=== PATIENT | male | born 2005 | race Caucasian/White ===

== ENCOUNTER 2024-12-27 21:32 | Observation (INO) | payer SELFPAY ==
--- OUTSIDE RECORDS SUMMARY | 2008-07-23 19:00 | XMS_ITS | Continuity of Care Document ---
Author Organization [facility] Address [id number][place] [address] Phone Care Team Providers Care Stonecutter Hand Name Role Phone Unavailable Unavailable Unavailable Advance Directives Directive Yes / No Effective Date File Name No Information Encounters Encounter Description Practice Location Reason(s) For Visit Diagnoses Date Provider Providers Copied on Encounter [facility], [id number] [place], [place], [id number], [place] tel:[phone] Family Medicine F1 Other emotional disturbances of childhood or adolescence 0200 9 No Information [facility], [id number], [id number], [place] tel:[phone] Family Medicine F1 Attention deficit disorder of childhood with hyperactivity 3200 9 No Information Family History Family Member Type Diagnosis Age At Onset No Information Payers Payer name Insurance type Covered libertarian ID Authoriza tion(s) No Information Social History [...]
[2024-12-27 21:42] VITALS: BP 150/90; PULSE 130; RESP 18; TEMP 38.1; O2SAT 99; BMI 27.6
--- NOTE | 2024-12-27 21:47 | XRR_ITS ---
PROCEDURE INFORMATION: Exam: XR Chest Exam date and time: 12/27/2024 9:51 PM Age: 19 years old Clinical indication: Dyspnea TECHNIQUE: Imaging protocol: Radiologic exam of the chest. Views: 1 view. COMPARISON: No relevant prior studies available. FINDINGS: Lungs: Unremarkable. No consolidation. Pleural spaces: Unremarkable. No pleural effusion. No pneumothorax. Heart/Mediastinum: Unremarkable. No cardiomegaly. Bones/joints: Unremarkable. XR/XR chest 1V portable [id number] IMPRESSION: No acute findings.
[2024-12-27] MEDS: sodium chloride 0.9% 2,925.66 ML 2925.66 ML IV (22:00)
--- NOTE | 2024-12-27 22:02 | ED_ITS ---
HPI - SOB/Dyspnea 2 General: Chief Complaint: Shortness of Breath/Dyspnea Stated Complaint: allergic reaction. SOB skin blisters Time Seen by Provider: 12/27/24 21:46 History of Present Illness: HPI Narrative: Chief complaint is redness of the skin and vomiting. Patient states that on he was cleaning out a tank with paint thinner being sprayed. He states that he has done this many times in the past. He states later that evening he felt like he had the taste of it in his mouth like he had swallowed some of it and he felt sick to his stomach and he vomited. He states after vomiting he did not taste anymore any felt like he was doing better but yesterday morning he woke up and his skin was red and burning all over. He states he did take a Benadryl at home and he states some of the swelling and erythema in his thigh area seems better. No headache. Asked him about tick bites and he states he does get occasional tick bites but none that he was aware of that were new. No other bites that he is aware of. He states he does not feel really short of breath although he states sometimes when he is walking he will feel just slight difficulty catching his air. No history of asthma or COPD. No medical problems. No immunosuppression. No IV drug use. No regular alcohol use. No chest pain. No cough. He states he had a slight scratchy throat yesterday but none today. No further vomiting. No abdominal pain. No diarrhea. No black or bloody stools or emesis. No dysuria. No testicular pain or swelling. No swelling of his throat or trouble swallowing. No itching. He did not take niacin or any new medications or any other new substances that he is aware of. Physical Exam 2 Narrative: EXAM NARRATIVE: Patient is alert talkative. His skin is erythematous and blanches with some delayed cap refill. Erythema is primarily on his trunk and face. Small amount on extremities. He is tachycardic on auscultation. Lung sounds are clear. No increased work of breathing. No accessory muscle use or retractions he is speaking in full sentences. Neck is supple. Normal conjunctivo-. He has moist mucous membranes. No pharyngeal erythema or exudates. No cervical lymphadenopathy. No stridor. No swelling of his face or arms or extremities that I can appreciate. He is alert and talkative and appropriate affect. He is oriented x 4. He is moving his arms and legs freely and no evident motor deficit. He has strong intact peripheral pulses. He moves his extremities freely. No CVA tenderness or tenderness over his back. Course 2 Vital Signs: Vital signs: Vital Signs Temperature 100.5 F H 12/27/24 21:42 Pulse Rate 100 12/27/24 22:50 Respiratory Rate 16 12/27/24 22:50 Blood Pressure 134/93 12/27/24 22:50 Pulse Oximetry 100 12/27/24 22:50 Oxygen Delivery Me thod Room Air 12/27/24 22:50 MDM - SOB/Dyspnea Medical Decision Making Patient presents with a erythematous rash over his face and torso. He denies any sun exposure or possible sunburn. He reports burning pink thinner and working in a tank or cleaning it with the spraying paint thinner the day before the symptoms started following by some vomiting that evening but no vomiting since then and no abdominal pain. He denies any significant shortness of breath to me. He has markedly tachycardic. Sepsis certainly considered in the differential. I ordered 30 cc/kg normal saline IV fluid bolus and Tylenol 650 mg p.o. and Rocephin 2 g IV and thousand 500 mg of vancomycin IV. Consideration for anaphylaxis or allergic reaction however he has a fever and his rash is not pruritic and he denies swelling in his throat or any other area of swelling other than he states his thighs were little swollen and he states that his eyelids and face were little swollen and very bright red earlier although he states that is calm down. He did take some Benadryl at home. He is very tachycardic. Will initiate IV fluid bolus and then reassess and consider epinephrine. Will proceed with Pepcid 20 mg IV. Toxidrome, allergic reaction, sepsis, broad differential. He denies taking niacin. History also obtained from his who is present. CBC blood cultures lactic CMP chest x-ray EKG also ordered. Patient did not hear of clear improvement from the epinephrine. He states he is starting to feel much better though he states the swelling in his face and legs seems to be going down. Patient's heart rate is markedly improved. Lactic was not elevated. White count was elevated. I consulted with poison control who feels that patient's presentation unrelated to the paint thinner that he sprayed. The patient has the ration areas that were not exposed to the paint thinner. Patient does not recall that he did take a reflux pill from his uncle the night before the rash started because of his symptoms after spraying the paint thinner and he does not know what medication it was. Chemical burn is unlikely with areas affected including the armpits and other areas that would not have been exposed. It is possible this could be related but he does not know what it was he took. Toxic shock or sepsis or other infectious process, allergic reaction, contact dermatitis, very broad differential. I give the patient doxycycline in addition with his history of the tick bites. I have consulted with who is seeing pt in ED to admit. Lab Data 12/27/24 22:01 12/27/24 22:01 Labs/Radiology: Radiology Impressions Chest X-Ray 12/27/24 21:47 IMPRESSION: No acute findings. Laboratory Results WBC 14.75 10^3/uL (4.5-13.0) H 12/27/24 22:01 RBC 6.09 10^6/uL (3.85-5.65) H 12/27/24 22:01 Hgb 19.40 g/dL (13.2-15.6) H 12/27/24 22:01 Hct 52.8 % (37-53) 12/27/24 22: MCV 86.7 fl (82-101) 12/27/24 22:01 MCH 31.9 pg (27-33) 12/27/24 22: MCHC 36.7 g/dL (30-55) 12/27/24 22: RDW 11.7 % (12.1-15.1) L 12/27/24 22:01 Plt Count 166 10^3/cmm (157-399) 12/27/24 22:01 MPV 9.8 fL (7.4-10.4) 12/27/24 22:01 Neut % (Auto) 85.7 % 12/27/24 22:01 Lymph % (Auto) 8.7 % 12/27/24 22: [place] % (Auto) 3.6 % 12/27/24 22: Eos % (Auto) 1.4 % 12/27/24 22:01 Baso % (Auto) 0.1 % 12/27/24 22:01 Neut # (Auto) 12.64 10^3/uL (1.8-8.0) H 12/27/24 22:01 Lymph # (Auto) 1.3 10^3/uL (1.5-6.5) L 12/27/24 22:01 [place] # (Auto) 0.5 10^3/uL (0.2-0.9) 12/27/24 22:01 Eos # (Auto) 0.2 10^3/uL (0.0-0.8) 12/27/24 22: Baso # (Auto) 0.0 10^3/uL (0.0-0.1) 12/27/24 22: Nucleated RBC % (auto) 0 % 12/27/24 22: Nucleated RBCs # 0.0 /100WBC 12/27/24 22:01 Sodium 134 mmol/L (136-145) L 12/27/24 22: Potassium 4.2 mmol/L (3.5-5.1) 12/27/24 22: Chloride 98 mmol/L (98-107) 12/27/24 22: Carbon Dioxide 23 mmol/L (22-29) 12/27/24 22: Anion Gap 17.2 (5-19) 12/27/24 22: BUN 11 mg/dL (6-20) 12/27/24 22: Creatinine 1.1 mg/dL (0.7-1.2) 12/27/24 22: GFR Calculation 85.3 mL/min (90-130) L 12/27/24 22: Glucose 102 mg/dL (65-115) 12/27/24 22: Calculated Osmolality 278 mOsm/kg (285-295) L 12/27/24 22: Lactic Acid 1.3 mmol/L (0.5-2.2) 12/27/24 22: Calcium 9.7 mg/dL (8.5-10.5) 12/27/24 22: Total Bilirubin 1.1 mg/dL (0.15-1.2) 12/27/24 22: AST 21 U/L (0-40) 12/27/24 22: ALT 17 U/L (0-41) 12/27/24 22:01 Alkaline Phosphatase 71 U/L (40-130) 12/27/24 22:01 Total Protein 7.5 g/dL (6.6-8.7) 12/27/24 22:01 Albumin 4.6 g/dL (3.5-5.2) 12/27/24 22:01 Globulin 2.9 g/dL (1.3-4.6) 12/27/24 22:01 Influenza A (PCR) Negative (Negative) 12/27/24 22:18 Influenza Type B (PCR) Negative (Negative) 12/27/24 22:18 RSV (PCR) Negative (Negative) 12/27/24 22:18 SARS-CoV-2 (PCR) Negative (Negative) 12/27/24 22:18 Group A Strep Rapid Negative (Negative) 12/27/24 22:18 XR interpretation done by ED provider, pending radiology final review Discharge Plan Discharge Patient Disposition: Placed in Observation Clinical Impression: Fever, Sinus tachycardia Coding Level of Care Code ED Java [employer] Developer for Jeffery Lambert
[2024-12-27 22:09] LABS: Hematocrit 52.8 % (37-53); Hemoglobin 19.40 g/dL (13.2-15.6); Mean Corpuscular HGB Conc 36.7 g/dL (30-55); Mean Corpuscular Hemoglobin 31.9 pg (27-33); Mean Corpuscular Volume 86.7 fl (82-101); Nucleated Red Blood Cells % 0 %; Platelet Count 166 10^3/cmm (157-399); Red Blood Count 6.09 10^6/uL (3.85-5.65); White Blood Count 14.75 10^3/uL (4.5-13.0)
[2024-12-27] MEDS: cefTRIAXone 2,000 mg SDV 2000 MG IVP (22:10)
--- NOTE | 2024-12-27 22:13 | ECG_ITS ---
[facility] Test Date: 2024-12-27 Pat Name: Sukhdev Tolentino Department: Room: 276 Gender: Male Garnetter: : 2005 Requested By: Marlon Simpson Order Number: [id number] Reading MD: Measurements Intervals [place] Rate: 100 P: 72 WI: 144 QRS: 55 QRSD: 91 T: 36 QT: 311 QTc: 401 Interpretive Statements SINUS TACHYCARDIA ABNORMAL RHYTHM ECG No previous ECG available for comparison [email or web address]
[2024-12-27 22:26] LABS: Lactic Sepsis W/Reflex 1.3 mmol/L (0.5-2.2)
[2024-12-27 22:27] LABS: Alanine Aminotransferase 17 U/L (0-41); Albumin Level 4.6 g/dL (3.5-5.2); Alkaline Phosphatase 71 U/L (40-130); Anion Gap 17.2 (5-19); Aspartate Amino Transferase 21 U/L (0-40); Blood Urea Nitrogen 11 mg/dL (6-20); Calcium 9.7 mg/dL (8.5-10.5); Carbon Dioxide 23 mmol/L (22-29); Chloride 98 mmol/L (98-107); Creatinine Clr Calc Pharmacy 133.8315; Globulin 2.9 g/dL (1.3-4.6); Glucose 102 mg/dL (65-115); Osmolality Calculated 278 mOsm/kg (285-295); Potassium 4.2 mmol/L (3.5-5.1); Sodium 134 mmol/L (136-145); Total Protein 7.5 g/dL (6.6-8.7)
[2024-12-27 22:28] VITALS: BP 138/81; PULSE 86; RESP 16; O2SAT 100
[2024-12-27 22:41] LABS: Rapid Strep A Test Negative (Negative)
[2024-12-27 22:44] VITALS: BP 138/81; PULSE 93; RESP 16; O2SAT 98
[2024-12-27 22:50] VITALS: BP 134/93; PULSE 100; RESP 16; O2SAT 100
[2024-12-27 23:11] LABS: Respiratory Syncytial Virus Ce NEGATIVE (Negative); SARS-CoV-2 PCR NEGATIVE (Negative)
[2024-12-27] MEDS: diphenhydrAMINE 50 mg/mL SDV 1mL 25 MG IVP (23:24)
[2024-12-27] MEDS: doxycycline 100 MG in sodium chloride 0.9% (plus) 100 ML IV (23:24)
[2024-12-27 23:36] VITALS: BP 117/52; PULSE 108; RESP 16; O2SAT 100
[2024-12-27 23:51] LABS: ABG PCO2 31.5 mmHg (35-45); ABG PH Result 7.39 (7.35-7.45); Alveolar-Arterial Oxygen Gradi 1.8 mmHg (5-10); Arterial Blood Gas Hematocrit 47.6 % (42-52); Blood Gas Allen Test Pos; Blood Gas Sample Site Radial, right; Blood Gas Sample Type Arterial; Carboxyhemoglobin 2.7 %THgb (0.4-20.1); Glucose Level-ABG 125.0 mg/dL (70-115); HCO3 ABG 18.9 mmol/L (22-26); Ionized Calcium Level - ABG 1.1 mmol/L (1.1-1.4); Methemoglobin 1.2 % (0.4-1.5); Oxygen Saturation ABG 98.5; PO2 ABG 95.2 mmHg (80.0-100.0); Potassium Level - ABG 3.8 mmol/L (3.5-5.0); Sodium Level - ABG 136.0 mmol/L (131-143)
--- NOTE | 2024-12-28 00:06 | P.HP_ITS ---
Providers/Chief Complaint 2 Admitting Physician: Patient seen before midnight Chief Complaint: allergic reaction. SOB skin blisters History of Present Illness Sukhdev Tolentino is a 19 year old male with no significant medical history who had presented to the emergency room because of what looks like allergic reaction. Patient was at work and had to use a pain thinner to [employer] that they were cleaning to make it brand-new. With the sprain patient smelled and inhaled the fumes because of being in the area. Instantly patient started having nausea and threw up and actually had the sensation of tasting the fumes in his mouth. This was all happening yesterday being December 26 around about 9 AM. In the evening patient was still feeling a little nauseous the ankle gave him some antiacid according to him and he took it. Today patient started experiencing miliary rashes all over the body. Patient feels warm and quite erythematous. The face had perioral cyanosis all over the place. Feel with miliary rash. Patient blanches when you touch the skin and initially it takes more than 3 seconds to return back. The emergency room physician further interrogated the patient and the patient told him that he had had a couple of teeth but and upon when I was there to evaluate the patient upon being consulted by the emergency room attending, patient tells me that even pulled a tick in between the toes and he did not know how long it has been there. I feel these are 2 different processes going on. Strep culture was done and it was negative. Blood culture x 2 done COVID flu RSV done and negative. Patient received some Benadryl Pepcid from the emergency room and also was given vancomycin and doxycycline and ceftriaxone. Per the report patient erythematosus face and chest and trunk had improved but still with miliary rash. Patient did have a temperature of 100.5. It was be also noted that patient heart rate at presentation was 140. Patient received 3 L of IV fluid normal saline in the emergency room. He was beginning to feel better before I arrive to evaluate patient. Patient also was given an amp of epi. ED felt that strep sepsis cannot be ruled out patient white count was 14,000 do all of the inflammatory indices were negative. Patient felt warm and cold at the same time. I have seen and evaluated patient at this time chest x-ray unremarkable urinalysis unremarkable lactate unremarkable at 1.3. I continued patient on doxycycline empirically to cover for tickborne illness and also sent for tick panel. However the most #1 diagnosis is systemic inflammatory reaction secondary to accidental inhalation of paint thinner. Possible take borne illness is unrelated. I continue with doxycycline as a single agent antibiotics for empiric antibiotics for tickborne illness, I added steroid to aggressively calm the inflammation down for associated allergic form of illness. I see this as a 23-hour observation stay. Review of Systems 2 Narrative: System review upon 10 organ review were significant for miliary rashes with blanching and almost resolving with the care given at the emergency room with Benadryl doxycycline PPIs. System review were essentially unremarkable except for integumentary with miliary rash and systemic symptoms of febrile illness low-grade this is an observation stay Vitals/I&O/Wt Last Vital Signs Temp 100.5 F H 12/27/24 21:42 Pulse 108 H 12/27/24 23:36 Resp 16 12/27/24 23:36 BP 117/52 12/27/24 23:36 Pulse Ox 100 12/27/24 23:36 O2 Del Method Room Air 12/27/24 23:36 Weight last 48 hrs Weight 97.522 kg Physical Exam 2 Narrative: Generally patient is relaxed flushed with miliary rashes all over the body including the face. Has perioral cyanosis. Initial heart rate of tachycardia at 140 had come down to less than 110 HEENT normocephalic atraumatic neck neck is supple cardiovascular heart rate is regular lungs are pretty much clear abdomen soft nontender nondistended unremarkable extremities are intact with a lot of tick bites to the lower extremities Neurology no focality patient is alert awake oriented x 3. Integumentary is with diffuse miliary rash erythematous skin and blanching of the skin upon any pressure. Cap refill is good had improved dramatically from presentation. Data 12/27/24 22:01 12/27/24 22:01 Micro: Microbiology 12/27/24 22:19 Blood Culture - Preliminary Blood SPECIMEN COLLECTED 12/27/24 22:01 Blood Culture - Preliminary Blood SPECIMEN COLLECTED A&P Assessment and plan (1) Toxic effect of paint thinner: - Patient has all 5 signs of patient Milagro poisoning *Nausea and vomiting and abdominal pain all cramping, diarrhea *Difficulty breathing Could have change in mental status confusion drowsiness or agitation but this patient does not have these *Treated with IV fluid patient had gotten 3 L in the emergency room. The allergic-like symptom display we have treated with Benadryl, steroid, PPI, and an initial EPi of 0.3 mg IM given (2) Sinus tachycardia: Toxic effects of paint thinner This is tachycardia arrhythmia inflammatory induced by toxic paint thinner Responded to IV hydration, steroid therapy, an amp of epinephrine injection, PPI, (3) Blistered skin: These's skin irruption 2 to toxic paint thinner effect Wash off, supportive care with IV fluid, anti-inflammatory such as steroid and other supportive care with PPI Benadryl (4) Fever: Fever is systemic reaction to the toxic effects of paint fumes Fever leads to tachycardia likely in this patient Anti-inflammatory is the mainstay can follow through with steroid therapy, Benadryl, IV hydration, (5) At high risk for tick borne illness: Patient with tick bite and had taken off some of the skin. - Tick panel sent and doxycycline therapy initiated (6) Rash and nonspecific skin eruption: Toxic effects of paint fumes continue treatment with - IV hydration, PPI, anti-inflammatory Benadryl steroids Plan GI and DVT prophylaxis in place PDMP PDMP Reviewed: Last Reviewed 12/28/24 01:21 by Citlaly Arroyo MD Attestations 2 Medical Necessity Statement*: Toxic effect of paint thinner fumes patient is improving and this will be a 23- hour observation stay Coding Level of Care Code 59760 Diagnoses Toxic effect of paint thinner T52.8X1A Sinus tachycardia R00.0 Blistered skin T14.8XXA Fever R50.9 At high risk for tick borne illness Z91.89 Rash and nonspecific skin eruption R21 Time Spent (min) 60
[2024-12-28 00:14] LABS: Glucose Urine UA Negative (Normal); Nitrate Urine Negative (Negative); Specific Gravity, Urine 1.023 (1.005-1.030)
[2024-12-28 00:21] LABS: PCP Screen Urine Negative (Negative)
[2024-12-28 00:25] VITALS: BP 106/65; PULSE 88; RESP 19; TEMP 37.7; O2SAT 98
[2024-12-28] MEDS: pantoprazole 40 mg SDV IVP (01:17)
[2024-12-28] MEDS: methylPREDNISolone sod succ 40 mg/mL INJ IVP (01:18)
[2024-12-28] MEDS: diphenhydrAMINE 50 mg/mL SDV 1mL IVP (01:22)
[2024-12-28 01:28] VITALS: BMI 28.3
[2024-12-28 04:00] VITALS: BP 120/67; PULSE 94; RESP 17; TEMP 37.3; O2SAT 98
[2024-12-28 06:41] VITALS: PULSE 82
[2024-12-28 08:25] VITALS: BP 115/63; PULSE 74; RESP 16; TEMP 36.8; O2SAT 98
--- NOTE | 2024-12-28 10:59 | PM.DCS ---
Discharge Providers Date of Admission: 12/28/24 00:16 Date of Discharge: December 28, 2024 Attending Provider at Admission: Ctilaly Arroyo MD Attending Provider at Discharge: Armando eHster MD Diagnoses at Discharge Discharge Diagnosis (1) Toxic effect of paint thinner: Status: Acute (2) Sinus tachycardia: Status: Acute (3) Blistered skin: Status: Acute (4) Fever: Status: Acute (5) At high risk for tick borne illness: Status: Acute (6) Rash and nonspecific skin eruption: Status: Acute Reason for Visit Reason for Visit: allergic reaction. SOB skin blisters Hospital Course Hospital Course This is a 19-year-old male who presents [facility] due to rash, vomiting, nausea Patient was admitted to [facility] for allergic reaction, chemical exposure, heat exposure -Received IV steroids, IV fluids - Rash has significantly responded to steroids - No recurrent pruritus - No facial swelling, no tongue swelling, no wheezing - Will be discharged on prednisone burst, - Advised to hydrate well - Monitor rash follow-up with primary care provider For concern for tickborne illness, discharged on doxycycline Tachycardia has resolved during his hospitalization Afebrile on discharge Patient did have leukocytosis, recommended repeat CBC in the morning however he has declined Patient does have erythrocytosis, likely hemoconcentration, from dehydration, however patient declines repeat CBC to ensure erythrocytosis has resolved Urine toxicology screen positive for marijuana advised against marijuana use Advised patient that as he is on doxycycline, to wear sunscreen avoid the sun, hydrate well Heat exposure advised him to stay out of sun, keep cool, hydrate at least 3 L of fluid a day Due to concerns for allergic reaction he was given an EpiPen on discharge, if he were to have any anaphylactic reaction please use EpiPen and call [phone] Physical Exam Const: COMMON NORMALS: no acute distress and patient oriented x3 Resp: COMMON NORMALS: normal respiratory effort, No retractions, No use of accessory muscles and clear to auscultation bilaterally AUSCULTATION: clear to auscultation bilaterally Cardio: COMMON NORMALS: regular rate, regular rhythm, S1 normal heart sound present and S2 normal heart sound present RATE: regular rate RHYTHM: regular rhythm HEART SOUNDS: S1 normal heart sound present and S2 normal heart sound present GI: COMMON NORMALS: Normal to inspection, nondistended, normoactive bowel sounds present and non-tender Extremity: COMMON NORMALS: no pedal edema Neuro: COMMON NORMALS: patient oriented x3, CN's II-XII intact bilaterally and moves all extremities Psych: COMMON NORMALS: mental status grossly normal Discharge Data Studies Completed and Pending Completed Studies During Hospitalization Category Date Time Status XR chest 1V portable [id number] Stat Exams 12/27/24 21:47 Completed Pending at discharge Category Date Time Status Blood Culture Stat Lab 12/27/24 22:19 Results Complete Blood Count w/Auto AM LABS Lab 12/28/24 04:00 Ordered Comprehensive Metabolic Panel AM LABS Lab 12/28/24 04:00 Ordered Erythrocyte Sedimentation Rate Routine Lab 12/28/24 09:07 Ordered Magnesium AM LABS Lab 12/28/24 04:00 Ordered Phosphorus AM LABS Lab 12/28/24 04:00 Ordered Streptococcus Culture Group A Stat Lab 12/27/24 22:18 Received Tick Panel Urgent Lab 12/28/24 00:25 Ordered Radiology Impressions Chest X-Ray 12/27/24 21:47 IMPRESSION: No acute findings. Laboratory Results WBC 14.75 10^3/uL (4.5-13.0) H 12/27/24 22:01 RBC 6.09 10^6/uL (3.85-5.65) H 12/27/24 22:01 Hgb 19.40 g/dL (13.2-15.6) H 12/27/24 22:01 Hct 52.8 % (37-53) 12/27/24 22:01 MCV 86.7 fl (82-101) 12/27/24 22:01 MCH 31.9 pg (27-33) 12/27/24 22:01 MCHC 36.7 g/dL (30-55) 12/27/24 22:01 RDW 11.7 % (12.1-15.1) L 12/27/24 22:01 Plt Count 166 10^3/cmm (157-399) 12/27/24 22:01 MPV 9.8 fL (7.4-10.4) 12/27/24 22:01 Neut % (Auto) 85.7 % 12/27/24 22:01 Lymph % (Auto) 8.7 % 12/27/24 22:01 [place] % (Auto) 3.6 % 12/27/24 22:01 Eos % (Auto) 1.4 % 12/27/24 22:01 Baso % (Auto) 0.1 % 12/27/24 22:01 Neut # (Auto) 12.64 10^3/uL (1.8-8.0) H 12/27/24 22:01 Lymph # (Auto) 1.3 10^3/uL (1.5-6.5) L 12/27/24 22:01 [place] # (Auto) 0.5 10^3/uL (0.2-0.9) 12/27/24 22:01 Eos # (Auto) 0.2 10^3/uL (0.0-0.8) 12/27/24 22:01 Baso # (Auto) 0.0 10^3/uL (0.0-0.1) 12/27/24 22:01 Nucleated RBC % (auto) 0 % 12/27/24 22:01 Nucleated RBCs # 0.0 /100WBC 12/27/24 22:01 Specimen Type Arterial 12/27/24 23:42 Sample Site Radial, right 12/27/24 23:42 ABG pH 7.39 (7.35-7.45) 12/27/24 23:42 ABG pCO2 31.5 mmHg (35-45) L 12/27/24 23:42 ABG pO2 95.2 mmHg (80.0-100.0) 12/27/24 23:42 ABG HCO3 18.9 mmol/L (22-26) L 12/27/24 23:42 ABG O2 Saturation 98.5 12/27/24 23:42 ABG Base Excess -4.9 mmol/L (-2.0-2.0) L 12/27/24 23:42 Zachary Test Pos 12/27/24 23:42 A-a O2 Gradient 1.8 mmHg (5-10) L 12/27/24 23:42 Hematocrit 47.6 % (42-52) 12/27/24 23:42 Hgb O2 Saturation 94.7 % (95-100) L 12/27/24 23:42 Carboxyhemoglobin 2.7 %THgb (0.4-20.1) 12/27/24 23:42 Methemoglobin 1.2 % (0.4-1.5) 12/27/24 23:42 Total Hemoglobin 15.5 g/dL (14-18) 12/27/24 23:42 Sodium 136.0 mmol/L (131-143) 12/27/24 23:42 Potassium 3.8 mmol/L (3.5-5.0) 12/27/24 23:42 Glucose 125.0 mg/dL (70-115) H 12/27/24 23:42 Ionized Calcium 1.1 mmol/L (1.1-1.4) 12/27/24 23:42 O2 Delivery Device Room air 12/27/24 23:42 Phlebotomy Technologist ID [email or web address] 12/27/24 23:42 Sodium 134 mmol/L (136-145) L 12/27/24 22:01 Sodium Cancelled 12/27/24 22:01 Potassium 4.2 mmol/L (3.5-5.1) 12/27/24 22:01 Potassium Cancelled 12/27/24 22:01 Chloride 98 mmol/L (98-107) 12/27/24 22:01 Chloride Cancelled 12/27/24 22:01 Carbon Dioxide 23 mmol/L (22-29) 12/27/24 22:01 Carbon Dioxide Cancelled 12/27/24 22:01 Anion Gap 17.2 (5-19) 12/27/24 22:01 Anion Gap Cancelled 12/27/24 22:01 BUN 11 mg/dL (6-20) 12/27/24 22:01 BUN Cancelled 12/27/24 22:01 Creatinine 1.1 mg/dL (0.7-1.2) 12/27/24 22:01 Creatinine Cancelled 12/27/24 22:01 GFR Calculation 85.3 mL/min (90-130) L 12/27/24 22:01 GFR Calculation Cancelled 12/27/24 22:01 Glucose 102 mg/dL (65-115) 12/27/24 22:01 Glucose Cancelled 12/27/24 22:01 Calculated Osmolality 278 mOsm/kg (285-295) L 12/27/24 22:01 Calculated Osmolality Cancelled 12/27/24 22:01 Lactic Acid 1.3 mmol/L (0.5-2.2) 12/27/24 22:01 Calcium 9.7 mg/dL (8.5-10.5) 12/27/24 22:01 Calcium Cancelled 12/27/24 22:01 Total Bilirubin 1.1 mg/dL (0.15-1.2) 12/27/24 22:01 Total Bilirubin Cancelled 12/27/24 22:01 AST 21 U/L (0-40) 12/27/24 22:01 AST Cancelled 12/27/24 22:01 ALT 17 U/L (0-41) 12/27/24 22:01 ALT Cancelled 12/27/24 22:01 Alkaline Phosphatase 71 U/L (40-130) 12/27/24 22:01 Alkaline Phosphatase Cancelled 12/27/24 22:01 C-Reactive Protein 33.6 mg/L (0.0-4.9) H 12/27/24 22:01 Total Protein 7.5 g/dL (6.6-8.7) 12/27/24 22:01 Total Protein Cancelled 12/27/24 22:01 Albumin 4.6 g/dL (3.5-5.2) 12/27/24 22:01 Albumin Cancelled 12/27/24 22:01 Globulin 2.9 g/dL (1.3-4.6) 12/27/24 22:01 Globulin Cancelled 12/27/24 22:01 Urine Color [place] (Yellow) A 12/28/24 00:09 Urine Appearance Clear (CLEAR) 12/28/24 00:09 Urine pH 5.5 (5-7) 12/28/24 00:09 Ur Specific [place] 1.023 (1.005-1.030) 12/28/24 00:09 Urine Protein Trace (Negative) A 12/28/24 00:09 Urine Glucose (UA) Negative (Normal) 12/28/24 00:09 Urine Ketones Negative (Negative) 12/28/24 00:09 Urine Blood Negative (Negative) 12/28/24 00:09 Urine Nitrate Negative (Negative) 12/28/24 00:09 Urine Bilirubin Negative (Negative) 12/28/24 00:09 Urine Urobilinogen 1.0 mg/dL (Negative) 12/28/24 00:09 Ur Leukocyte Esterase Negative (Negative) 12/28/24 00:09 Urine RBC 0-2 /hpf (0-2) 12/28/24 00:09 Urine WBC 0-5 /hpf (0-5) 12/28/24 00:09 Ur Squamous Epith Cells 0-5 /hpf (0-5) 12/28/24 00:09 Amorphous Sediment Not Reportable 12/28/24 00:09 Urine Bacteria None seen /hpf (NONE) 12/28/24 00:09 Hyaline Casts 0.81 /lpf 12/28/24 00:09 Urine Opiates Screen Negative ng/mL (Negative) 12/28/24 00:09 Ur Barbiturates Screen Negative ng/mL (Negative) 12/28/24 00:09 Ur Phencyclidine Scrn Negative ng/mL (Negative) 12/28/24 00:09 Ur Amphetamines Screen Negative ng/mL (Negative) 12/28/24 00:09 U Benzodiazepines Scrn Negative ng/mL (Negative) 12/28/24 00:09 Urine Cocaine Screen Negative ng/mL (Negative) 12/28/24 00:09 U Marijuana (THC) Screen Positive ng/mL (Negative) H 12/28/24 00:09 Influenza A (PCR) Negative (Negative) 12/27/24 22:18 Influenza Type B (PCR) Negative (Negative) 12/27/24 22:18 RSV (PCR) Negative (Negative) 12/27/24 22:18 SARS-CoV-2 (PCR) Negative (Negative) 12/27/24 22:18 Group A Strep Rapid Negative (Negative) 12/27/24 22:18 Vitals Last Vital Signs Temp 98.2 F 12/28/24 08:25 Pulse 74 12/28/24 08:25 Resp 16 12/28/24 08:25 BP 115/63 12/28/24 08:25 Pulse Ox 98 12/28/24 08:25 O2 Del Method Room Air 12/28/24 08:25 Discharge Plan Discharge Patient Disposition: Home Condition: Stable Prescriptions: New prednisone 20 mg tablet 20 mg PO BID 3 Days Qty: 6 0RF doxycycline hyclate 100 mg tablet 100 mg PO BID 5 Days Qty: 10 0RF Discharge Orders: Discharge Order (Routine); Ordered 12/28/24 Ordered By: Armando Hester Discharge Diet: Cardiac Discharge Activity: Resume usual activity Patient Instructions: Allergic Reaction, Doxycycline (By mouth), Prednisone (By mouth), Tick Bite (GEN), Opioid Safety, Patient Portal & Anthony Instructions Discharge Attestations Time Spent in Discharge Care*: greater than 30 min Quality Metrics Clinical Quality Measures [ No reported AMI, CVA or VTE this stay] Coding Level of Care Code 62922 Total time (in minutes) for Discharge: 45 Diagnoses Toxic effect of paint thinner T52.8X1A Sinus tachycardia R00.0 Blistered skin T14.8XXA Fever R50.9 At high risk for tick borne illness Z91.89 Rash and nonspecific skin eruption R21
[2024-12-28 11:08] VITALS: BP 116/63; PULSE 74; RESP 16; TEMP 36.8; O2SAT 98
--- NOTE | 2024-12-28 11:08 | PC.NURSE ---
Patient discharged at this time. Patient verbalized understanding of discharge instructions and to follow up with a primary care doctor as soon as he can get established with one. Reviewed medications with patient who verbally understood. Patint ambulated from the floor with a steady gait.
== END 2024-12-28 11:08 | disposition home or self-care (01) ==
LOC: ER 23:31 → MEDSURG 12-28 00:16
PROVIDERS: Admitting Provider Internal Medicine; Emergency Provider Emergency Medicine; Visit Provider Family Medicine
DX: T52.8X1A Toxic effect of other organic solvents, accidental (unintentional), initial encounter (principal); T14.8XXA Other injury of unspecified body region, initial encounter; R00.0 Tachycardia, unspecified; R50.9 Fever, unspecified; Z91.89 Other specified personal risk factors, not elsewhere classified; R21 Rash and other nonspecific skin eruption; D72.829 Elevated white blood cell count, unspecified; D75.1 Secondary polycythemia; F12.90 Cannabis use, unspecified, uncomplicated; Z79.899 Other long term (current) drug therapy
CPT/HCPCS: 36415; 36600; 71045; 80051; 80053; 80306; 81001; 82330; 82805; 83605; 85025; 87040; 87081; 87637; 87880; 93005; 93010; 96365; 96367; 96372; 96375; 96376; 99285; G0378; J0171; J0696; J1200; J1885; J2470; J2919; J3370; J3490; J7030; J9999

== ENCOUNTER 2024-12-30 23:40 | Emergency (ER) | payer SELFPAY ==
--- OUTSIDE RECORDS SUMMARY | 2008-07-23 19:00 | XMS_ITS | Continuity of Care Document ---
Author Organization [facility] Address [address] [id number] [address] Phone Care Team Providers Care Centrifugal Spinner Name Role Phone Unavailable Unavailable Unavailable Advance Directives Directive Yes / No Effective Date File Name No Information Encounters Encounter Description Practice Location Reason(s) For Visit Diagnoses Date Provider Providers Copied on Encounter [facility], [id number] [place], [place], [id number], [place] tel:[phone] Family Medicine F1 Other emotional disturbances of childhood or adolescence 0200 9 No Information [facility], [id number], [id number], [place] tel:[phone] Family Medicine F1 Attention deficit disorder of childhood with hyperactivity 3200 9 No Information Family History Family Member Type Diagnosis Age At Onset No Information Payers Payer name Insurance type Covered republican ID Authoriza tion(s) No Information Social History Type Description Quantity Date Captured Comments Sex Male Smoking Status No Information Chief Complaint And Reason For Visit No Information Reason For Referral Reason For Referral No Information History Of Present Illness Encounter Date Complaint History Of Prese nt Illness No Information Functional Status Date Functional Assessmen t No Information Instructions Date Instruction Additional Infor mation No Information Assessments Type Assessment Date No Information Patient Care Teams Name Effective Dates (start - stop) Status Members No Information
[2024-12-30 23:58] VITALS: BP 137/73; PULSE 79; RESP 17; TEMP 37.1; O2SAT 99; BMI 27.8
--- NOTE | 2024-12-31 01:46 | W.ED.SKABFB ---
HPI - Skin/Abscess/Foreign Bdy General: Chief complaint: Skin/Abscess/Foreign Body Stated complaint: L leg swollen and purple possible spider bite Time Seen by Provider: 12/31/24 01:26 History of Present Illness: Patient comes in with concerns for worsening spider bite/infection. States he was seen here 4 days ago and diagnosed with allergic reaction to a possible spider bite and possible cellulitis. He was started on steroids and doxycycline. States he did not crab picker the steroids but he has been taking the doxycycline. States he is worried that the redness is worse. On physical exam he has a 1 x 1 cm necrotic area on his left lower abdominal wall consistent with a spider bite. He has erythema and bruising that extends down onto his left anterior thigh. We discussed continuing the antibiotics. We talked about symptoms he should watch out for that should prompt immediate return to the emergency department. I also encouraged him to return regularly for repeat examinations. Will discharge at this time with precautions to return for worsening or changing symptoms. Associated symptoms: Deny fever(s), nausea or vomiting Related Data Previous Rx's ?Medication ?Instructions ?Recorded doxycycline hyclate 100 mg tablet 100 mg PO BID 7 days #14 tabs 12/28/24 epinephrine 0.3 mg/0.3 mL 0.3 mg (0.3 mL) IM Q10M PRN 12/28/24 injection, auto-injector (EpiPen) anaphylaxis #1 ea prednisone 20 mg tablet 20 mg PO BID 3 days #6 tabs 12/28/24 Allergies Allergy/AdvReac Type Severity Reaction Status Date / Time No Known Allergies Allergy Verified 12/28/24 05:13 Review of Systems Const: Denies: fever(s) Eyes: Denies: change in vision or blurry vision Card: Denies: chest pain or palpitations Resp: Denies: dyspnea or productive cough GI: Denies: abdominal pain, nausea or vomiting Physical Exam Const: COMMON NORMALS: no acute distress and healthy appearing Neck/C-Spine: COMMON NORMALS: full ROM and supple Resp: COMMON NORMALS: normal respiratory effort, No retractions and No use of accessory muscles Cardio: COMMON NORMALS: regular rate and regular rhythm RATE: regular rate RHYTHM: regular rhythm GI: COMMON NORMALS: Normal to inspection, nondistended, normoactive bowel sounds present, Soft to palpation and non-tender PALPATION: Yes Soft to palpation Skin: NARRATIVE SKIN EXAM: 1 x 1 cm necrotic area on his left lower abdominal wall consistent with a spider bite. He has erythema and bruising that extends down onto his left anterior thigh. Course Vital Signs: Vital signs: Vital Signs Temperature 98.8 F 12/30/24 23:58 Pulse Rate 79 12/30/24 23:58 Respiratory Rate 17 12/30/24 23:58 Blood Pressure 137/73 12/30/24 23:58 Pulse Oximetry 99 12/30/24 23:58 Oxygen Delivery Me thod Room Air 12/30/24 23:58 MDM - Skin/Abscess/Foreign Bdy Medicial Decision Making n No radiology studies performed this visit Discharge Plan Discharge Patient Disposition: Home Clinical Impression: Brown recluse spider bite Condition: Stable Prescriptions: No Action prednisone 20 mg tablet 20 mg PO BID 3 Days Qty: 6 0RF epinephrine [EpiPen] 0.3 mg/0.3 mL auto-injector 0.3 mg IM Q10M PRN (Reason: anaphylaxis) Qty: 1 0RF Rx Instructions: for 2 doses doxycycline hyclate 100 mg tablet 100 mg PO BID 7 Days Qty: 14 0RF Discharge Orders: Discharge ED (Routine); Ordered 12/31/24 Ordered By: Taz Maldonado Patient Instructions: Brown Recluse Spider Bite (ED), Patient Portal & Anthony Instructions Print Language: Serbian Coding Level of Care Code ED Supervisor [employer] for Jeffery Lambert
[2024-12-31 02:37] VITALS: BP 135/77; PULSE 81; RESP 17; O2SAT 98
== END 2024-12-31 02:37 | disposition home or self-care (01) ==
PROVIDERS: Emergency Provider Emergency Medicine
DX: T63.331A Toxic effect of venom of brown recluse spider, accidental (unintentional), initial encounter (principal); X58.XXXA Exposure to other specified factors, initial encounter
CPT/HCPCS: 99281